=== PATIENT | female | born 1985 | race Two or more races ===

== ENCOUNTER 2022-10-12 12:12 | Emergency (ER) | payer OTHER ==
[~2022-10-12] VITALS: Ht 162.6 cm; Wt 76.7 kg
[2022-10-12 14:49] LABS: APPEARANCE, URINE MANUAL CLEAR (CLEAR); COLOR, URINE MANUAL COLORLESS (YELLOW)
[2022-10-12 14:50] LABS: PH,URINE MAN 5.5 UNITS (5.0 - 7.0)
[2022-10-12 14:51] LABS: BILIRUBIN, URINE MANUAL NEGATIVE (NEGATIVE); BLOOD URINE MANUAL NEGATIVE (NEGATIVE); GLUCOSE, URINE (UA) MANUAL NEGATIVE (NEGATIVE); KETONE, URINE MANUAL NEGATIVE (NEGATIVE); LEUKOCYTE ESTERASE, URINE MAN NEGATIVE (NEGATIVE); NITRITE, URINE MANUAL NEGATIVE (NEGATIVE); PROTEIN, URINE MANUAL NEGATIVE (NEGATIVE); UROBILINOGEN, URINE MANUAL NORMAL (NORMAL)
[2022-10-12 15:49] VITALS: BP 117/59
== END 2022-10-12 15:59 | disposition home or self-care (01) ==
LOC: M ED 14:46
DX: O26.892 Other specified pregnancy related conditions, second trimester (principal); R10.2 Pelvic and perineal pain; Z87.891 Personal history of nicotine dependence; Z3A.16 16 weeks gestation of pregnancy

== ENCOUNTER 2023-01-24 12:38 | Outpatient (CLI) | payer OTHER ==
[~2023-01-24] VITALS: Ht 165.1 cm; Wt 83.6 kg
[2023-01-24 13:04] VITALS: BP 134/81
[2023-01-24] MEDS ORDERED: MULTTAB20 PO (13:12)
[2023-01-24] MEDS ORDERED: HOME MED LIST COMPLETE! XX SCH (13:15)
[2023-01-24 14:38] LABS: APPEARANCE, URINE CLEAR (CLEAR); BACTERIA, URINE AUTO 1+ (NEGATIVE); BILIRUBIN, URINE AUTO NEGATIVE (NEGATIVE); BLOOD, URINE BLOOD NEGATIVE (NEGATIVE); COLOR, URINE STRAW (YELLOW); GLUCOSE, URINE (UA) AUTO NEGATIVE (NEGATIVE); KETONE, URINE AUTO NEGATIVE (NEGATIVE); LEUKOCYTE ESTERASE, URINE AUTO NEGATIVE (NEGATIVE); NITRITE, URINE AUTO NEGATIVE (NEGATIVE); PROTEIN, URINE AUTO NEGATIVE (NEGATIVE); RBC, URINE AUTO 0 /HPF (0-3); SPECIFIC GRAVITY URINE AUTO 1.003 (1.002-1.035); SQUAMOUS EPITHELIAL CELL UR AU 4 /HPF (0-6); UROBILINOGEN, URINE AUTO 0.2 mg/dL (0.0-2.0); WBC, URINE AUTO 1 /HPF (0-3)
== END 2023-01-24 13:53 | disposition home or self-care (01) ==
LOC: M LDO 12:38
PROVIDERS: ATTEND Advanced Practice Midwife
DX: O26.892 Other specified pregnancy related conditions, second trimester (principal); R10.31 Right lower quadrant pain; Z3A.25 25 weeks gestation of pregnancy; O34.219 Maternal care for unspecified type scar from previous cesarean delivery; O09.522 Supervision of elderly multigravida, second trimester
CPT/HCPCS: 59025; 81001; 87086; G0463